=== PATIENT | male | born 1960 | race Caucasian/White ===

== ENCOUNTER 2016-07-24 13:52 | Emergency (ER) | payer MEDICAID ==
[~2016-07-24] VITALS: Ht 165.1 cm; Wt 62.1 kg
[2016-07-24] MEDS ORDERED: TRAZ-147 PO (14:10)
[2016-07-24] MEDS ORDERED: GABA-534 PO (14:10)
[2016-07-24] MEDS ORDERED: PANTOPRAZOLE SODIUM 40 MG VIAL IV ONE (14:15)
[2016-07-24] MEDS ORDERED: IV NORMAL SALINE 1000 ML BAG IV ONE ×2 (14:15→15:00)
[2016-07-24] MEDS ORDERED: ONDANSETRON 4 MG/2 ML VIAL IV ONE (14:15)
[2016-07-24 14:30] LABS: BASOPHILS % (AUTO) 0.8 % (0.0-2.0); EOSINOPHILS % (AUTO) 0.6 % (0.0-7.0); HEMATOCRIT 45.8 % (40-50); LYMPHOCYTES # (AUTO) 1.4 K/UL (0.8-4.8); LYMPHOCYTES % (AUTO) 34.4 % (20.5-51.5); MEAN CORPUSCULAR HEMOGLOBIN 27.9 UUG (27.0-31.0); MEAN CORPUSCULAR HGB CONC 33 g/dL (32.0-37.0); MEAN CORPUSCULAR VOLUME 84.8 FL (82.0-92.0); MONOCYTES # (AUTO) 0.4 K/UL (0.1-1.30); MONOCYTES % (AUTO) 11.2 % (0.0-11.0); NEUTROPHILS # (AUTO) 2.2 K/UL (1.8-8.9); PLATELET COUNT (AUTO) 219 K/UL (150-450)
[2016-07-24] MEDS ORDERED: PANTOPRAZOLE SODIUM 40 MG VIAL ONE (14:33)
[2016-07-24] MEDS ORDERED: ONDANSETRON 4 MG/2 ML VIAL ONE (14:33)
[2016-07-24 14:40] LABS: CREATININE 0.8 mg/dL (0.6-1.3); POTASSIUM 3.9 mmol/L (3.5-5.1)
[2016-07-24 14:45] LABS: BILIRUBIN,DIRECT 0.2 mg/dL (0.0-0.2); BILIRUBIN,TOTAL 0.9 mg/dL (0.2-1.0)
--- NOTE | 2016-07-24 17:31 | NUR ---
Patient discharged to home in stable conditon. Written and verbal after care instructions given. Patient verbalizes understanding of instructions.PT REQUESTING FOOD. HOSPITAL SANDWICH AND JUICE PROVIDED. PT DENIES ANY NAUSEA.
--- NOTE | 2016-07-24 18:20 | NUR ---
PT TOLRATED FOOD WELL. WALKS IN STEADY GAIT, SAYS FEELS BETTER,
[2016-07-24 18:25] VITALS: BP 124/77
== END 2016-07-24 18:25 | disposition home or self-care (01) ==
LOC: ER 13:54
DX: F10.129 Alcohol abuse with intoxication, unspecified (principal); Z88.0 Allergy status to penicillin
CPT/HCPCS: 36415; 70030-TC; 71010; 83605; 83690; 85025; 85730; 87040; 93005; A4663; C9113; G0480; J2405; J7030